=== PATIENT | female | born 1995 | race African-American/Black ===

== ENCOUNTER 2016-09-14 18:05 | Emergency (ER) | payer MEDICAID ==
[~2016-09-14] VITALS: Ht 157.5 cm; Wt 60.0 kg
[2016-09-14 19:44] VITALS: BP 147/97
== END 2016-09-14 20:00 | disposition home or self-care (01) ==
LOC: ER 18:44
DX: S16.1XXA Strain of muscle, fascia and tendon at neck level, initial encounter (principal); J45.909 Unspecified asthma, uncomplicated; V89.2XXA Person injured in unspecified motor-vehicle accident, traffic, initial encounter; W22.19XA Striking against or struck by other automobile airbag, initial encounter; Y93.89 Activity, other specified; Y92.89 Other specified places as the place of occurrence of the external cause; Y99.8 Other external cause status
CPT/HCPCS: 99283